=== PATIENT | male | born 1960 | race Two or more races ===

== ENCOUNTER 2020-05-22 07:02 | Emergency (ER) | payer OTHER, MEDICAID ==
[~2020-05-22] VITALS: Ht 177.8 cm; Wt 122.5 kg
[2020-05-22 07:18] VITALS: BP 129/101
[2020-05-22] MEDS ORDERED: cefTRIAXone SOD 1,000 MG VL IM ONE (08:00)
== END 2020-05-22 08:19 | disposition home or self-care (01) ==
LOC: ER 07:06
DX: L20.9 Atopic dermatitis, unspecified (principal); F17.210 Nicotine dependence, cigarettes, uncomplicated; F12.10 Cannabis abuse, uncomplicated
CPT/HCPCS: 96372; 99283; J0696